=== PATIENT | female | born 1960 | race Caucasian/White ===

== ENCOUNTER 2024-04-04 14:03 | Outpatient (CLI) | payer MEDICAID | END 2024-04-04 23:59 | disposition home or self-care (01) | LOC: RAD 14:03 | PROVIDERS: ATTEND Physician Assistant Medical | DX: R91.1 Solitary pulmonary nodule (principal); M19.90 Unspecified osteoarthritis, unspecified site; M06.9 Rheumatoid arthritis, unspecified; M51.34 Other intervertebral disc degeneration, thoracic region; J98.4 Other disorders of lung; K76.9 Liver disease, unspecified | CPT/HCPCS: 71250 ==

== ENCOUNTER 2024-05-31 13:48 | Outpatient (CLI) | payer MEDICAID | END 2024-05-31 23:59 | disposition home or self-care (01) | LOC: MRI 13:48 | PROVIDERS: ATTEND Physician Assistant Medical | DX: M19.072 Primary osteoarthritis, left ankle and foot (principal); M19.071 Primary osteoarthritis, right ankle and foot; M06.9 Rheumatoid arthritis, unspecified; R91.1 Solitary pulmonary nodule; M20.12 Hallux valgus (acquired), left foot | CPT/HCPCS: 73718 ==

== ENCOUNTER 2024-06-28 08:37 | Outpatient (CLI) | payer MEDICAID | END 2024-06-28 23:59 | disposition home or self-care (01) | LOC: MRI 08:37 | PROVIDERS: ATTEND Nurse Practitioner Family | DX: M47.812 Spondylosis without myelopathy or radiculopathy, cervical region (principal); M48.02 Spinal stenosis, cervical region; G96.191 Perineural cyst; M54.16 Radiculopathy, lumbar region; M25.78 Osteophyte, vertebrae; R20.2 Paresthesia of skin | CPT/HCPCS: 72141 ==

== ENCOUNTER 2024-10-07 13:43 | Outpatient (CLI) | payer MEDICAID | END 2024-10-07 23:59 | disposition home or self-care (01) | LOC: RAD 13:43 | PROVIDERS: ATTEND Physician Assistant | DX: M25.521 Pain in right elbow (principal) | CPT/HCPCS: 73080 ==